=== PATIENT | female | born 1970 | race Hispanic/Latino ===

== ENCOUNTER → 2024-04-08 | Day surgery (SDC) | payer OTHER ==
[~2024-04-08] MED LIST: HYOSCYAMINE SULFATE 0.5 MG/ML INJ ONE; METFORMIN HCL500 MG PO; PROPOFOL IV EMULSION 50 ML IV ONE
[2024-04-08] MEDS: LACTATED RINGER'S 1,000 ML ONE (10:47)
[2024-04-08 13:17] VITALS: TEMP 97.1
[2024-04-08 13:39] VITALS: BP 149/80; PULSE 68; RESP 18; O2SAT 100
== END | disposition home or self-care (01) ==
LOC: OR 10:13
PROVIDERS: ATTEND Internal Medicine Gastroenterology
DX: Z12.11 Encounter for screening for malignant neoplasm of colon (principal); K62.1 Rectal polyp; K29.50 Unspecified chronic gastritis without bleeding; B96.81 Helicobacter pylori [H. pylori] as the cause of diseases classified elsewhere; K20.90 Esophagitis, unspecified without bleeding; K21.9 Gastro-esophageal reflux disease without esophagitis; K64.8 Other hemorrhoids; Z71.3 Dietary counseling and surveillance; E11.9 Type 2 diabetes mellitus without complications; E78.00 Pure hypercholesterolemia, unspecified; R03.0 Elevated blood-pressure reading, without diagnosis of hypertension; Z71.89 Other specified counseling; Z01.810 Encounter for preprocedural cardiovascular examination; Z79.84 Long term (current) use of oral hypoglycemic drugs; Z68.24 Body mass index [BMI] 24.0-24.9, adult
CPT/HCPCS: 43239; 45385; 93005; J1980; J2470; J2704; J7121; 45378